=== PATIENT | female | born 1985 | race Hispanic/Latino ===

== ENCOUNTER → 2021-03-19 | Day surgery (SDC) | payer BC ==
[~2021-03-19] MED LIST: BREZTRI AEROS10.7 GM INH; FAMOTIDINE20 MG PO; [UNRECOGNIZED DRUG - OTHER] PO
[2021-03-19 14:20] VITALS: BP 117/77
== END | disposition home or self-care (01) ==
LOC: ENDO 12:18 → EDSEX 13:30
PROVIDERS: ATTEND Internal Medicine Gastroenterology
DX: K20.90 Esophagitis, unspecified without bleeding (principal); K29.50 Unspecified chronic gastritis without bleeding; B96.81 Helicobacter pylori [H. pylori] as the cause of diseases classified elsewhere; T18.108A Unspecified foreign body in esophagus causing other injury, initial encounter; K21.9 Gastro-esophageal reflux disease without esophagitis; Z86.16 Personal history of COVID-19; I10 Essential (primary) hypertension; X58.XXXA Exposure to other specified factors, initial encounter; Z01.810 Encounter for preprocedural cardiovascular examination; Z68.33 Body mass index [BMI] 33.0-33.9, adult
CPT/HCPCS: 43239; 43450; 81025; 93005; C9113